=== PATIENT | female | born 1990 | race Two or more races ===

== ENCOUNTER 2017-07-13 21:59 | Emergency (ER) | payer OTHER ==
[2017-07-13 22:14] VITALS: BMI 24.9
[2017-07-13 23:25] VITALS: BP 109/67; PULSE 74; TEMP 98.9
--- NOTE | 2017-07-13 23:59 | PDOC ---
History of Present Illness - General History Source: Patient Exam Limitations: No Limitations - History of Present Illness Initial Comments: 07/14/17 00:21 The patient is a 27 year old approximately 23 weeks female(), with no significant past medical history, who presents to the emergency department with abdominal pain and leg pain for approximately one day. The patient reports sudden onset of left-sided abdominal pain at approximately 02:00 yesterday morning. Patient reports her pain radiates to her sides and down her left thigh. She reports associated nausea, but denies any vomiting, diarrhea, or constipation. She reports the pain was initially intermittent, but has since become constant. She denies any fever, chills, headache, or dizziness. She denies any dysuria, hematuria, frequency, or urgency. She denies any vaginal bleeding or discharge. She denies any recent travel or sick contacts. Allergies: NKDA Past Surgical History: None reported Social History: Non smoker. No ETOH or recreational drug use. <Bairon Decker - Last Filed: 07/14/17 01:02> <Musa Schuler - Last Filed: 07/14/17 01:12> - General Chief Complaint: Labor Assessment Stated Complaint: LEFT SIDE PAIN (23 WEEKS) Time Seen by Provider: 07/13/17 23:56 Past History <Bairon Decker - Last Filed: 07/14/17 01:02> - Past Medical History COPD: No - Suicide/Smoking/Psychosocial Hx Smoking History: Never smoked <Musa Schuler - Last Filed: 07/14/17 01:12> - Past Medical History Allergies/Adverse Reactions: Allergies Allergy/AdvReac Type Severity Reaction Status Date / Time No Known Allergies Allergy Verified 07/13/17 22:07 Home Medications: Ambulatory Orders Pnv#71/Iron/Folic Acid/Dha [Prena1 Mei Softgel] 1 each PO DAILY 07/13/17 Review of Systems - Review of Systems Able to Perform ROS?: Yes Comments:: 07/14/17 00:22 CONSTITUTIONAL: No fever, no chills, no fatigue EYES: No visual changes ENT: No ear pain, no sore throat CARDIOVASCULAR: No chest pain, no palpitations RESPIRATORY: No cough, no SOB GI: Yes left-sided abdominal pain, nausea. No vomiting, no constipation, no diarrhea GENITOURINARY: No dysuria, no frequency, no hematuria MUSCULOSKELETAL: Yes left thigh/leg pain. No back pain, no other joint pain, no myalgias SKIN: No rash NEURO: No headache <Decker,Coleenleyla - Last Filed: 07/14/17 01:02> *Physical Exam - Vital Signs Last Vital Signs Temp Pulse Resp BP Pulse Ox 98.9 F 74 18 109/67 100 07/13/17 23:17 07/13/17 23:17 07/13/17 23:17 07/13/17 23:17 07/13/17 22:11 - Physical Exam Comments: 07/14/17 00:22 CONSTITUTIONAL: Well-appearing; well-nourished; in no apparent distress HEAD: Normocephalic; atraumatic EYES: PERRL; EOM intact ENMT: External appears normal; normal oropharynx NECK: Supple; non-tender; no cervical lymphadenopathy CARD: Normal S1, S2; no murmurs, rubs, or gallops RESP: Normal chest excursion with respiration; breath sounds clear and equal bilaterally; no wheezes, rhonchi, or rales ABD: Gravid uterus with a fundus palpable 2 cm above the umbilicus. Mild left sided tenderness without guarding or rebound Soft, non-distended; no palpable organomegaly, no palpable hernias PELVIC: Defer to US. BACK: Mild left CVA tenderness. EXT: Normal ROM in all four extremities; non-tender to palpation; distal pulses intact SKIN: Warm, dry, no rash NEURO: No focal neurological deficiencies. <Bairon Decker - Last Filed: 07/14/17 01:02> - Vital Signs Last Vital Signs Temp Pulse Resp BP Pulse Ox 98.9 F 74 18 109/67 100 07/13/17 23:17 07/13/17 23:17 07/13/17 23:17 07/13/17 23:17 07/13/17 22:11 <Musa Schuler - Last Filed: 07/14/17 01:12> ED Treatment Course - RADIOLOGY Radiograph Interpretation: 07/14/17 01:02 EXAM: Renal US INTERPRETED BY: Dr. Raymond REVIEWED BY: Dr. Schuler IMPRESSION: Right kidney measures 11 cm x 4 cm x 5.9 cm. No right hydronephrosis stone or other right we'll abnormality. The left kidney measures 10.3 cm x 6.3 cm x 6 cm. No left hydronephrosis stone or other left renal abnormality. <Bairon Decker - Last Filed: 07/14/17 01:02> Medical Decision Making - Medical Decision Making 07/14/17 01:10 Patient is well-appearing 27-year-old female, 1 para 0, at 23 weeks gestation who presented with atraumatic left-sided abdominal and back pain radiating to the left thigh. Patient was cleared by [facility]. In the ER, patient' s awake and alert, afebrile, with mild left-sided abdominal tenderness and mild left CVA tenderness. Urinalysis reveals no evidence of pyuria or hematuria, renal ultrasound reveals no evidence of hydronephrosis. I do not suspect ovarian pathology or diverticulitis at this time. Patient is able tolerate by mouth without difficulty. There is no diarrhea. There is no vaginal bleeding. Will discharge with abdominal pain instructions with outpatient follow-up. <Musa Schuler - Last Filed: 07/14/17 01:12> *DC/Admit/Observation/Transfer - Attestations Scribe Attestion: 07/14/17 00:22 Documentation prepared by Bairon Decker, acting as certified medical dosimetrist for Musa Schuler MD. <Bairon Decker - Last Filed: 07/14/17 01:02> <Musa Schuler - Last Filed: 07/14/17 01:12> Diagnosis at time of Disposition: Abdominal pain affecting - Discharge Dispostion Disposition: HOME Condition at time of disposition: Stable - Referrals Referrals: special effects technician, two-3 days [Other] - Patient Instructions Printed Discharge Instructions: DI for Abdominal Pain -- Early
[2017-07-14 00:45] LABS: PH,URINE 6.5 (5.0-8.0); URINE APPEARANCE CLEAR; URINE BILIRUBIN NEGATIVE (NEGATIVE); URINE BLOOD NEGATIVE (NEGATIVE); URINE COLOR LT. YELLOW; URINE GLUCOSE (UA) NEGATIVE (NEGATIVE); URINE KETONE NEGATIVE (NEGATIVE); URINE NITRITE NEGATIVE (NEGATIVE); URINE PROTEIN NEGATIVE (NEGATIVE); URINE UROBILINOGEN 0.2 mg/dL (0.2-1.0)
[2017-07-14 12:12] LABS: URINE LEUK ESTERASE Negative (NEGATIVE)
== END 2017-07-14 01:17 | disposition home or self-care (01) ==
LOC: JER 21:59
DX: O26.892 Other specified pregnancy related conditions, second trimester (principal); R10.84 Generalized abdominal pain; Z3A.23 23 weeks gestation of pregnancy
CPT/HCPCS: 76775-TC; 81003; 87086; 99281-25

== ENCOUNTER 2018-10-12 23:01 | Emergency (ER) | payer OTHER ==
[2018-10-12 23:19] VITALS: TEMP 98.2; BMI 25.2
--- NOTE | 2018-10-12 23:33 | PDOC ---
History of Present Illness - General Chief Complaint: Pain Stated Complaint: VOMITING NECK PAIN Time Seen by Provider: 10/12/18 23:31 History Source: Patient Exam Limitations: No Limitations - History of Present Illness Initial Comments: 28 Yo F w no pmh presents to the ER with diffuse body pains, muscle aches, headaches, elevated fevers, nausea, and vomiting - NBNB. She states she was at [facility] earlier in the week and had the flu test done but it was negative and they diagnosed her with a UTI. Her mother has been diagnosed with the flu and was flu positive, she has also been around her mother this past week. She has taken NSAIDs for pain control. She states she cannot be as her LMP was last week. PCP: Patient doesn't know name but says is on [facility] [address] Allergies: NKDA, NKA Past Surgical History: None reported Social History: Non smoker. No ETOH or recreational drug use. Past History - Past Medical History Allergies/Adverse Reactions: Allergies Allergy/AdvReac Type Severity Reaction Status Date / Time No Known Allergies Allergy Verified 10/12/18 23:19 Home Medications: Ambulatory Orders [id number]/Iron/Folic Acid/Dha [Prena1 Mei Softgel] 1 each PO DAILY 07/13/17 Cephalexin [Keflex] 500 mg PO BID #14 capsule 10/13/18 COPD: No - Suicide/Smoking/Psychosocial Hx Smoking History: Never smoked Have you smoked in the past 12 months: No Information on smoking cessation initiated: No Hx Alcohol Use: No Drug/Substance Use Hx: No Review of Systems - Review of Systems Able to Perform ROS?: Yes Comments:: CONSTITUTIONAL: Present: Fever, chills Absent: no fatigue EYES: Absent: visual changes ENT: Absent: ear pain, no sore throat CARDIOVASCULAR: Present: chest pain, palpitations RESPIRATORY: Present: cough, SOB GI: Present: Abdominal pain, nausea, vomiting, diarrhea Absent: no constipation, no diarrhea GENITOURINARY: Absent: dysuria, no frequency, no hematuria MUSKULOSKELETAL: Present: Back pain, arthralgia, myalgia SKIN: Absent: rash NEURO: Present: headache *Physical Exam - Vital Signs Last Vital Signs Temp Pulse Resp BP Pulse Ox 98.2 F 140 H 16 114/55 L 100 10/12/18 23:17 10/12/18 23:17 10/12/18 23:17 10/12/18 23:17 10/12/18 23:17 - Physical Exam Comments: GENERAL: Well-appearing, well-nourished. No apparent distress. HEENT: Normocephalic, atraumatic. PERRL, EOM intact. CARDIOVASCULAR: Tachycardic rate. Normal S1, S2. Regular rhythm. PULMONARY: Decreased breath sounds throughout. No evidence of respiratory distress. Lungs clear to auscultation bilaterally. No wheezing, rales or rhonchi. ABDOMEN: Generalized abdominal discomfort. Soft, non-distended, non-tender. EXTREMITIES: Normal ROM in all four extremities. No gross deformities. SKIN: Warm, dry. No rash NEUROLOGICAL: No focal neurological deficits. Moderate Sedation - Procedure Monitoring Vital Signs: Procedure Monitoring Vital Signs Temperature 98.2 F 10/12/18 23:17 Pulse Rate 140 H 10/12/18 23:17 Respiratory Rate 16 10/12/18 23:17 Blood Pressure 114/55 L 10/12/18 23:17 O2 Sat by Pulse Oximetry (%) 100 10/12/18 23:17 ED Treatment Course - LABORATORY CBC & Chemistry Diagram: 10/13/18 00:29 10/13/18 03:39 Medical Decision Making - Medical Decision Making 28 Yo F w no pmh presents to the ER with diffuse body pains, muscle aches, headaches, elevated fevers, nausea, and vomiting - NBNB. She states she was at [facility] earlier in the week and had the flu test done but it was negative and they diagnosed her with a UTI. Her mother has been diagnosed with the flu and was flu positive, she has also been around her mother this past week. She has taken NSAIDs for pain control. She states she cannot be as her LMP was last week. VS: Tachycardic DDx IBNLT: Influenza, PNA, pneumothorax, PE, URI, other infection, Sepsis. Plan: Sepsis workup, Labs, urine, preg, CXR, supportive treatment, re-assess. Urine shows that the patient has a UTI She was likely uroseptic. Patient feels much better after IV hydration and more supportive care. - Sending keflex to her pharmacy and will DC w PCP fu - Will advise patient to drink plenty of fluids and have her creatinine checked as an outpatient. *DC/Admit/Observation/Transfer Diagnosis at time of Disposition: UTI (urinary tract infection) - Discharge Dispostion Disposition: HOME Condition at time of disposition: Improved Decision to Admit order: No - Prescriptions Prescriptions: Cephalexin [Keflex] 500 mg PO BID #14 capsule - Referrals Referrals: [facility] [place] [Provider Group] - Patient Instructions Printed Discharge Instructions: Urinary Tract Infection, DI for Pelvic Inflammatory Disease Additional Instructions: You came into the ER with abdominal pain. We looked at your urine and found that you have a urinary tract infection - please see attached handout for further explanation. We are sending an antibiotic to your pharmacy. Please make sure to go and pick it up. Your original creatinine was elevated in the ER. We gave you 2 liters of fluid and then your creatinine went down. It is urgent that you re-check your creatinine as an outpatient with your primary doctor in the next 3 to 5 days. It is extremely important for you to schedule a follow up appointment with your primary care doctor in the next 3 to 5 days to make sure you are being taken care of. Come back to the ER if your pain worsens, you get a fever, or have any other new or worsening concerns. Print Language: GERMAN - Post Discharge Activity
[2018-10-12] MEDS ORDERED: FAMOTIDINE 20 MG/50 ML IVPB 20 MG/50 ML MG IVPB ONE (23:45)
[2018-10-12] MEDS ORDERED: SODIUM CHLORIDE 0.9% 500 ML INFUS.BAG IV ONE (23:45)
[2018-10-12] MEDS ORDERED: ACETAMINOPHEN 1000 MG/100 ML VIAL (NON FORMULARY) IVPB ONE (23:46)
[2018-10-12] MEDS ORDERED: ONDANSETRON 4 MG/2 ML VIAL IVPUSH ONE (23:48)
[2018-10-13] MEDS ORDERED: ALBUTEROL SO4 2.5/IPRATROPIUM 0.5 INH SOL 3 ML VIAL.NEB. NEB ONE ×2 (00:20→00:23)
[2018-10-13] MEDS ORDERED: FAMOTIDINE 20 MG/50 ML IVPB 20 MG/50 ML MG IVPB ONE (00:22)
[2018-10-13] MEDS ORDERED: ONDANSETRON 4 MG/2 ML VIAL ONE (00:22)
[2018-10-13] MEDS ORDERED: ACETAMINOPHEN INJECTION 100 ML IVPB ONE (00:22)
[2018-10-13] MEDS ORDERED: SODIUM CHLORIDE 0.9% 500 ML INFUS.BAG IV ONE (00:25)
--- NOTE | 2018-10-13 00:34 | PDOC ---
Attending Attestation - Resident Resident Name: Horacio Bethea - ED Attending Attestation I have performed the following: I have examined & evaluated the patient, The case was reviewed & discussed with the resident, I agree w/resident's findings & plan, Exceptions are as noted - HPI HPI: 10/13/18 00:23 28 year old female with no past medical history presents with flu like symptoms. Pt reports that her mother had swabbed positive for influenza. She started with body aches, tactile fevers, chest congestion, nausea. This occurred 5 days ago. Went to [facility] and had tested negative influenza. However, continued to have persistent symptoms. Endorses poor appetite, chest discomfort, some shortness of breath, tactile fevers, nausea, headache, total body aches. Because symptoms persisted, came into ER. - Physicial Exam PE: 10/13/18 00:34 GENERAL: Awake, alert, and fully oriented, mild uncomfortable appearing. HEAD: No signs of trauma EYES: PERRLA, EOMI, sclera anicteric, conjunctiva clear ENT: Auricles normal inspection, hearing grossly normal, nares patent, dry mucous membranes. NECK: Normal ROM, supple LUNGS: Breath sounds equal, clear to auscultation bilaterally. No wheezes, and no crackles HEART: Regular rate and rhythm, normal S1 and S2, no murmurs, rubs or gallops ABDOMEN: Soft, nontender, No guarding, no rebound. No masses EXTREMITIES: Normal range of motion, no edema. No clubbing or cyanosis. No cords, erythema, or tenderness NEUROLOGICAL: Cranial nerves II through XII grossly intact. Normal speech SKIN: Warm, Dry, normal turgor, no rashes or lesions noted. - Medical Decision Making 10/13/18 00:36 Vital Signs Temp Pulse Resp BP Pulse Ox 98.2 F 140 H 16 114/55 L 100 10/12/18 23:17 10/12/18 23:17 10/12/18 23:17 10/12/18 23:17 10/12/18 23:17 I suspect patient likely has influenza. Will however obtain chest xray to r/o PNA. Labs, IVF, symptom control. Labs and reassess. 10/13/18 03:40 CBC, BMP 10/13/18 00:29 10/13/18 00:29 CMP Sodium 135 mmol/L (136-145) L 10/13/18 00:29 Potassium 3.7 mmol/L (3.5-5.1) 10/13/18 00:29 Chloride 100 mmol/L (98-107) 10/13/18 00:29 Carbon Dioxide 25 mmol/L (21-32) 10/13/18 00:29 Anion Gap 10 MMOL/L (8-16) 10/13/18 00:29 BUN 17 mg/dL (7-18) 10/13/18 00:29 Creatinine 1.8 mg/dL (0.55-1.3) H 10/13/18 00:29 Creat Clearance w eGFR 33.75 (>60) 10/13/18 00:29 Random Glucose 78 mg/dL (74-106) 10/13/18 00:29 Lactic Acid 2.1 mmol/L (0.4-2.0) H 10/13/18 00:11 Calcium 8.4 mg/dL (8.5-10.1) L 10/13/18 00:29 Total Bilirubin 0.4 mg/dL (0.2-1) 10/13/18 00:29 AST 19 U/L (15-37) 10/13/18 00:29 ALT 20 U/L (13-61) 10/13/18 00:29 Alkaline Phosphatase 113 U/L (45-117) 10/13/18 00:29 Troponin I < 0.02 ng/ml (0.00-0.05) 10/13/18 00:29 Total Protein 6.4 g/dl (6.4-8.2) 10/13/18 00:29 Albumin 2.9 g/dl (3.4-5.0) L 10/13/18 00:29 Urine Test Results Urine Color Dkyellow 10/13/18 01:48 Urine Appearance Cloudy 10/13/18 01:48 Urine pH 5.0 (5.0-8.0) D 10/13/18 01:48 Ur Specific Jay 1.015 (1.010-1.035) 10/13/18 01:48 Urine Protein 3+ (NEGATIVE) H 10/13/18 01:48 Urine Glucose (UA) 1+ (NEGATIVE) H 10/13/18 01:48 Urine Ketones Trace (NEGATIVE) H 10/13/18 01:48 Urine Blood 1+ (NEGATIVE) H 10/13/18 01:48 Urine Nitrite Negative (NEGATIVE) 10/13/18 01:48 Urine Bilirubin Negative (<2.0 mg/dL) 10/13/18 01:48 Ur Leukocyte Esterase 2+ (NEGATIVE) H 10/13/18 01:48 Ur Epithelial Cells Moderate /HPF (FEW) 10/13/18 01:48 Urine Bacteria Many /hpf (NONE SEEN) 10/13/18 01:48 Urine Mucus Rare 10/13/18 01:48 Labs reviewed. WBC 13.5. 2+ leuk with 73 WBCs. Influenza swab. Pt likely with UTI as source of symptoms. However, Cr is 1.8. Will attempt to hydrate the patient and recheck Cr. HR improved with IVF to 95. If Cr improves, pt can be sent home with oral antibiotics. Heart Score/ECG Review #1 ECG reviewed & interpreted by me at: 23:45 10/13/18 00:37 NSR 134 no std/isabella, normal axis, normal intervals, QTC 433 msec
[2018-10-13 01:12] LABS: BASO % 0.2 % (0-2.0); EOS % 0.4 % (0-4.5); HEMATOCRIT 36.2 % (32.4-45.2); HEMOGLOBIN 12.3 GM/dL (10.7-15.3); LYMPH % 2.9 % (8-40); MCH 29.2 pg (25.7-33.7); MCHC 33.9 g/dl (32.0-36.0); MEAN CELL VOLUME 86.2 fl (80-96); MEAN PLT VOLUME 9.9 fl (7.5-11.1); MONO % 3.1 % (3.8-10.2); NEUT % 93.4 % (42.8-82.8); PLATELET COUNT 167 K/MM3 (134-434); RDW 13.3 % (11.6-15.6); WHITE BLOOD COUNT 13.5 K/mm3 (4.0-10.0)
[2018-10-13 01:24] LABS: INR 1.18 (0.83-1.09); PROTHROMBIN TIME (PATIENT) 13.9 SEC (9.7-13.0)
[2018-10-13 01:27] LABS: ACTIVATED PTT 36.5 SECONDS (25.2-36.5)
[2018-10-13 01:39] LABS: ALBUMIN 2.9 g/dl (3.4-5.0); ALK PHOS 113 U/L (45-117); ANION GAP 10 MMOL/L (8-16); BILIRUBIN,TOTAL 0.4 mg/dL (0.2-1); BLOOD UREA NITROGEN 17 mg/dL (7-18); CALCIUM 8.4 mg/dL (8.5-10.1); CHLORIDE 100 mmol/L (98-107); CO2 25 mmol/L (21-32); CREATININE 1.8 mg/dL (0.55-1.3); GLUCOSE,RANDOM 78 mg/dL (74-106); POTASSIUM 3.7 mmol/L (3.5-5.1); SGOT/AST 19 U/L (15-37); SGPT/ALT 20 U/L (13-61); SODIUM 135 mmol/L (136-145); TOT PROT 6.4 g/dl (6.4-8.2)
[2018-10-13 01:41] LABS: VENOUS PC02 55.5 mmHg (38-52); VENOUS PH 7.28 (7.32-7.42); VENOUS PO2 18.3 mmHg (28-48)
[2018-10-13 02:40] LABS: URINE APPEARANCE CLOUDY; URINE BILIRUBIN NEGATIVE (<2.0 mg/dL); URINE COLOR DKYELLOW; URINE GLUCOSE (UA) 1+ (NEGATIVE); URINE KETONE TRACE (NEGATIVE); URINE LEUK ESTERASE 2+ (NEGATIVE); URINE NITRITE NEGATIVE (NEGATIVE); URINE PROTEIN 3+ (NEGATIVE); URINE UROBILINOGEN NEGATIVE mg/dL (0.2-1.0)
[2018-10-13 02:42] LABS: HCG,QUALITATIVE URINE Negative
[2018-10-13 03:11] LABS: EPI CELLS MODERATE /HPF (FEW); URINE BACTERIA MANY /hpf (NONE SEEN); URINE MUCUS RARE
[2018-10-13 04:17] LABS: LIPASE 85 U/L (73-393)
[2018-10-13] MEDS ORDERED: IBUPROFEN 600 MG TABLET (FP) PO ONE ×2 (04:48→04:49)
[2018-10-13 05:35] LABS: ANION GAP 9 MMOL/L (8-16); BLOOD UREA NITROGEN 16 mg/dL (7-18); CALCIUM 7.3 mg/dL (8.5-10.1); CHLORIDE 105 mmol/L (98-107); CO2 23 mmol/L (21-32); CREATININE 1.4 mg/dL (0.55-1.3); GLUCOSE,RANDOM 85 mg/dL (74-106); POTASSIUM 3.4 mmol/L (3.5-5.1); SODIUM 138 mmol/L (136-145)
[2018-10-13 06:52] VITALS: BP 114/67; PULSE 71
[2018-10-13 09:23] LABS: ANISOCYTOSIS 1+; MACROCYTOSIS 0; PLATELET ESTIMATE NORMAL; TARGET CELLS 1+
--- NOTE | 2018-10-13 11:33 | EKG ---
Test Reason : Blood Pressure : / mmHG Vent. Rate : 134 BPM Atrial Rate : 134 BPM P-R Int : 144 ms QRS Dur : 074 ms QT Int : 290 ms P-R-T Axes : 057 079 018 degrees QTc Int : 433 ms SINUS TACHYCARDIA POSSIBLE LEFT ATRIAL ENLARGEMENT NO PREVIOUS ECGS AVAILABLE Confirmed by CHERRIE TIM MD ([id number]) on 10/13/2018 11:33:03 AM Referred By: CHIKAA Confirmed By:CHERRIE TIM MD
== END 2018-10-13 06:28 | disposition home or self-care (01) ==
LOC: JER 23:01
PROC: 3E0F7GC Introduction of Other Therapeutic Substance into Respiratory Tract, Via Natural or Artificial Opening (ICD-10-PCS; principal; 2018-10-12)
PROC: 3E033GC Introduction of Other Therapeutic Substance into Peripheral Vein, Percutaneous Approach (ICD-10-PCS; 2018-10-12)
PROC: 3E0333Z Introduction of Anti-inflammatory into Peripheral Vein, Percutaneous Approach (ICD-10-PCS; 2018-10-12)
DX: N39.0 Urinary tract infection, site not specified (principal)
CPT/HCPCS: 36415; 71046-TC-FY; 80048; 80053; 81003; 81015; 82803; 83605; 83690; 84484; 84703; 85025; 85610; 85730; 86850; 86900; 86901; 87040; 87804; 93005; 93010; 99282-25; J0131

== ENCOUNTER 2019-08-03 20:20 | Emergency (ER) | payer OTHER ==
[2019-08-03 20:26] VITALS: BP 114/55; PULSE 75; TEMP 97.9; BMI 25.8
[2019-08-03] MEDS ORDERED: IBUPROFEN 600 MG TABLET (FP) PO ONE ×2 (21:17→21:33)
--- NOTE | 2019-08-03 22:30 | PDOC ---
History of Present Illness - General Chief Complaint: Pain Stated Complaint: RT ANKLE PAIN Time Seen by Provider: 08/03/19 20:42 History Source: Patient Exam Limitations: No Limitations Past History - Travel Traveled outside of the country in the last 30 days: No Close contact w/someone who was outside of country & ill: No - Past Medical History Allergies/Adverse Reactions: Allergies Allergy/AdvReac Type Severity Reaction Status Date / Time No Known Allergies Allergy Verified 08/03/19 20:27 Home Medications: Ambulatory Orders [id number]/Iron/Folic Acid/Dha [Prena1 Mei Softgel] 1 each PO DAILY 07/13/17 Cephalexin [Keflex] 500 mg PO BID #14 capsule 10/13/18 Ibuprofen 800 mg PO TID #30 tablet 08/03/19 COPD: No - Psycho Social/Smoking Cessation Hx Smoking History: Never smoked Have you smoked in the past 12 months: No Hx Alcohol Use: No Drug/Substance Use Hx: No Review of Systems - Review of Systems Able to Perform ROS?: Yes Comments:: 08/03/19 22:27 CONSTITUTIONAL: Absent: fever, chills, diaphoresis, generalized weakness, malaise, loss of appetite MUSCULOSKELETAL: Present: Right ankle pain absent: myalgia, joint swelling SKIN: Absent: rash, itching, pallor NEUROLOGIC: Absent: headache, focal weakness or paresthesias, dizziness, unsteady gait, seizure, mental status changes, bladder or bowel incontinence PSYCHIATRIC: Absent: anxiety, depression, suicidal or homicidal ideation, hallucinations. Is the patient limited Citizen [place] proficient: No *Physical Exam - Vital Signs Last Vital Signs Temp Pulse Resp BP Pulse Ox 97.9 F 75 18 114/55 L 99 08/03/19 20:24 08/03/19 20:24 08/03/19 20:24 08/03/19 20:24 08/03/19 20:24 - Physical Exam 08/03/19 22:27 GENERAL: The patient is awake, alert, and fully oriented, in no acute distress. HEAD: Normal with no signs of trauma. EYES: Pupils equal, round and reactive to light, extraocular movements intact, sclera anicteric, conjunctiva clear. EXTREMITIES: Right ankle with tenderness palpation at the base of the fifth metatarsal. No obvious swelling. Mild tenderness palpation at the lateral malleolus. Distal pulses in the ankle are 2+. 5 out of 5 strength bilaterally in the ankles. No sensory deficits. Normal range of motion, no edema. NEUROLOGICAL: Normal speech, normal gait. PSYCH: Normal mood, normal affect. SKIN: Warm, Dry, normal turgor, no rashes or lesions noted. ED Treatment Course - RADIOLOGY Radiology Studies Ordered: Category Date Time Status ANKLE & FOOT-RIGHT* [RAD] Stat Radiology 08/03/19 21:17 Taken - Medications Given in the ED: ED Medications Discontinued Medications Generic Name Dose Route Start Last Admin Trade Name Jelani PRN Reason Stop Dose Admin Ibuprofen 600 mg 08/03/19 21:17 08/03/19 21:32 Motrin - PO 08/03/19 21:18 600 mg ONCE ONE Administration Medical Decision Making - Medical Decision Making 08/03/19 22:28 The patient is a 29-year-old female no past medical history presents the ER with right ankle pain since yesterday. She states that she was walking at work when she tripped and twisted her ankle in a pothole. She she did not hit her head or losing consciousness. She states that when she woke up today the ankle was more painful so she came to the ER for evaluation. Denies fevers, chills, numbness and tingling and weakness the affected extremity. A/P: Ankle sprain Exam patient with mild tenderness to her lateral malleolus and at the base of the fifth metatarsal on the right ankle. Patient with full range of motion, minimal swelling. Negative Schwab test Ankle x-ray reveals no fractures or subluxations at this time. Most likely an ankle sprain We will discharge home with supportive therapy and orthopedic follow-up I discussed the physical exam findings, ancillary test results and final diagnoses with the patient. I answered all of the patient's questions. The patient was satisfied with the care received and felt comfortable with the discharge plan and treatment plan. The Patient agrees to follow up with the primary care physician/specialist within 24-72 hours. Return precautions were given. Discharge - Discharge Information Problems reviewed: Yes Clinical Impression/Diagnosis: Ankle sprain Qualifiers: Encounter type: initial encounter Involved ligament of ankle: unspecified ligament Laterality: right Qualified Code(s): S93.401A - Sprain of unspecified ligament of right ankle, initial encounter Condition: Stable Disposition: HOME - Admission No - Follow up/Referral Referrals: Camron Valle MD [Staff Physician] - - Patient Discharge Instructions Patient Printed Discharge Instructions: DI for Ankle Sprain Additional Instructions: You sprained your ankle. Your x-ray was negative for broken bones. Please keep your ankle elevated while at rest above the level of your heart to reduce swelling. You may take Motrin 800 mg every 8 hours to help reduce pain and swelling. Please ice the area for 20 minute intervals at least 5 times a day to help reduce swelling. Please wear the Spencer wrap. Please follow-up with orthopedics in 1 week if your symptoms are not improving. Return to the emergency department if you have worsening pain, or unable to walk , numbness and tingling of the foot, or had any changes in her symptoms. - Post Discharge Activity Work/Back to School Note: Back to Work
== END 2019-08-03 22:57 | disposition home or self-care (01) ==
LOC: JERFT 20:20
CPT/HCPCS: 73610-TC-RT-FY; 73630-TC-RT-FY; 99281-25